=== PATIENT | female | born 1965 | race Caucasian/White ===

== ENCOUNTER 2019-09-27 15:20 | Outpatient (RCR) | payer MEDICARE, SELFPAY | END 2019-09-29 23:59 | disposition home or self-care (01) | LOC: SPT 15:20 | PROVIDERS: Referring Provider Orthopaedic Surgery; Visit Provider Orthopaedic Surgery | DX: Z47.89 Encounter for other orthopedic aftercare (principal); S42.401D Unspecified fracture of lower end of right humerus, subsequent encounter for fracture with routine healing; X58.XXXD Exposure to other specified factors, subsequent encounter | CPT/HCPCS: 97161; 97530 ==

== ENCOUNTER 2019-09-30 06:00 | Outpatient (RCR) | payer MEDICARE, SELFPAY | END 2019-10-30 23:59 | disposition home or self-care (01) | LOC: SPT 06:00 | PROVIDERS: Referring Provider Orthopaedic Surgery; Visit Provider Orthopaedic Surgery | DX: S42.401D Unspecified fracture of lower end of right humerus, subsequent encounter for fracture with routine healing (principal); X58.XXXD Exposure to other specified factors, subsequent encounter | CPT/HCPCS: 97110; 97140 ==